=== PATIENT | male | born 1955 | race Caucasian/White ===

== ENCOUNTER 2023-03-07 14:59 | Inpatient (IN) ==
[2023-03-07 16:06] VITALS: BMI 26.6
[2023-03-07] MEDS ORDERED: PERCOCET TAB 5/325 MG PO PRN (16:16)
--- NOTE | 2023-03-07 16:21 | DR.UPDATE ---
H&P UPDATE Review Yes Any changes to H&P?: Yes Changes noted:: Patient now with disabling rest pain of left leg. Will admit and plan on table arteriogram, atherectomy of left SFA stents , possible atherectomy , possible placement of additional tents left SFA.
[2023-03-07] MEDS ORDERED: LR 1,000 ML IV 1,000 ML IV ONE (16:27)
[2023-03-07] MEDS: LR 1,000 ML IV 1,000 ML IV SCH (16:45)
[2023-03-07] MEDS ORDERED: PROVENTIL NEB TX 0.083% 2.5MG/ 3ML NEB PRN (18:36)
[2023-03-07] MEDS: NICOTINE PATCH TD SCH (20:10)
[2023-03-07] MEDS: PROVENTIL NEB TX 0.083% 2.5MG/ 3ML NEB SCH (20:42)
[2023-03-07] MEDS: NEURONTIN TAB 600 MG PO SCH (21:22)
[2023-03-08] MEDS: LR 1,000 ML IV 1,000 ML IV SCH (05:01)
[2023-03-08] MEDS: NEURONTIN TAB 600 MG PO SCH ×3 (05:32→21:08)
--- NOTE | 2023-03-08 06:06 | EKG ---
Test Reason : preop Blood Pressure : */* mmHG Vent. Rate : 58 BPM Atrial Rate : 58 BPM P-R Int : 150 ms QRS Dur : 110 ms QT Int : 426 ms P-R-T Axes : 73 -65 71 degrees QTc Int : 418 ms Sinus bradycardia Left axis deviation Incomplete right bundle branch block Minimal voltage criteria for LVH, may be normal variant ( [place] product ) Septal infarct , age undetermined Biphasic T waves in the anterolateral leads, rule out ischemia Abnormal ECG No previous ECGs available Confirmed by Chas Nassar ([id number]) on 03/08/2023 7:23:19 AM Referred By: Confirmed By: Chas Nassar
--- NOTE | 2023-03-08 07:40 | RAD ---
HISTORYPreop ischemic left lower extremitySTUDYChest AP portableCOMPARISONNoneFINDINGSHeart size is normal. Bre are normal. A triangular area of abnormal density in the medial right lung base could represent a focus of infiltrate or atelectasis within the medial right lower lobe or a very prominent epicardial fat pad. Chest CT would be of further diagnostic value. Remainder of the lung flores are clear. Bony thorax is unremarkable.IMPRESSIONTriangular area of abnormal density in the medial right lung base. Differential diagnosis as above. Chest CT may be of further diagnostic value if clinically indicated.Electronically signed by: DAVE MASTERSON (Mar 08, 2023 07:35:59)
[2023-03-08] MEDS: PROVENTIL NEB TX 0.083% 2.5MG/ 3ML NEB SCH ×2 (08:00→21:15)
[2023-03-08] MEDS ORDERED: NICOTINE PATCH TD SCH (09:00)
[2023-03-08] MEDS: NICOTINE PATCH TD SCH (09:19)
[2023-03-08 12:49] LABS: BASOPHILS % (AUTO) 0.6 % (0.2-1.0); EOSINOPHILS # (AUTO) 0.1 x10^3/uL (0.0-0.2); EOSINOPHILS % (AUTO) 0.8 % (0.9-2.9); HEMATOCRIT 49.7 % (42.0-54.0); HEMOGLOBIN 16.7 g/dL (13.5-18.0); LYMPHOCYTES # (AUTO) 1.3 X10^3/uL (1.3-2.9); LYMPHOCYTES % (AUTO) 16.7 % (21.0-51.0); MEAN CORPUSCULAR HEMOGLOBIN 32.5 pg (27.0-34.0); MEAN CORPUSCULAR HGB CONC 33.6 g/dL (33.0-35.0); MEAN CORPUSCULAR VOLUME 96.7 fL (80.0-100.0); MEAN PLATELET VOLUME 8.3 fL (7.4-11.0); MONOCYTES # (AUTO) 0.7 x10^3/uL (0.3-0.8); MONOCYTES % (AUTO) 8.9 % (0.0-13.0); NEUTROPHILS # (AUTO) 5.9 x10^3/uL (2.2-4.8); PLATELET COUNT 238 X10^3/uL (150.0-450.0); RED BLOOD COUNT 5.13 X10^6/uL (4.7-6.0); RED CELL DISTRIBUTION WIDTH 14.6 % (11.6-16.5)
[2023-03-08] MEDS: CHLORTHALIDONE PO SCH (12:56)
[2023-03-08] MEDS: NORVASC TAB 10 MG PO SCH (12:56)
[2023-03-08] MEDS: WELLBUTRIN XL 150 MG (DAILY) PO SCH (12:56)
[2023-03-08] MEDS: TOPROL XL PO SCH (12:56)
[2023-03-08] MEDS: COZAAR PO SCH (12:56)
[2023-03-08] MEDS: MOBIC TAB 15 MG PO SCH (12:56)
[2023-03-08 13:00] LABS: ALANINE AMINOTRANSFERASE 16 Units/L (12-78); ALBUMIN 3.7 g/dL (3.4-5.0); ALKALINE PHOSPHATASE 86 Units/L (46-116); ASPARTATE AMINO TRANSFERASE 14 Units/L (15-37); BLOOD UREA NITROGEN 5 mg/dL (7-18); CALCIUM 8.5 mg/dL (8.5-10.1); CARBON DIOXIDE 37.1 mmol/L (21-32); CHLORIDE 100 mmol/L (98-107); CREATININE 0.82 mg/dL (0.70-1.30); GLUCOSE 98 mg/dL (65-99); POTASSIUM 3.7 mmol/L (3.5-5.1); SODIUM 139 mmol/L (136-145); TOTAL PROTEIN 6.9 g/dL (6.4-8.2); eGFR NON BLACK RACES > 60 (>60)
[2023-03-08] MEDS ORDERED: LR 1,000 ML IV 1,000 ML IV ONE (15:33)
[2023-03-08] MEDS ORDERED: NS 100 ML IV 100 ML ONE (15:33)
[2023-03-08] MEDS ORDERED: ANCEF VIAL 1 GRAM ONE (15:33)
[2023-03-08] MEDS ORDERED: DUONEB 0.5 MG/3 MG (3 mL) NEB ONE (15:38)
[2023-03-08] MEDS ORDERED: KETAMINE 50 MG/5 ML-NACL SYRNG ONE (15:41)
[2023-03-08] MEDS ORDERED: FENTANYL VIAL INJ 100 mcg ONE (15:41)
[2023-03-08] MEDS ORDERED: VERSED ONE (15:41)
[2023-03-08] MEDS ORDERED: DIPRIVAN VIAL 20 ML ONE (15:42)
[2023-03-08] MEDS ORDERED: HEPARIN SODIUM INJ 5000 UNITS ONE (15:42)
[2023-03-08] MEDS ORDERED: MARCAINE 0.25% INJ ONE (15:56)
[2023-03-08] MEDS ORDERED: HEPARIN SODIUM IN D5W 75,000 UNITS/1,500 ML BAG ONE (15:57)
[2023-03-08] MEDS ORDERED: VISIPAQUE 100 ML ONE (16:08)
[2023-03-08] MEDS: ASPIRIN EC 81 MG PO SCH (16:16)
[2023-03-08] MEDS ORDERED: PROTAMINE SULFATE 50 MG VIAL ONE (17:01)
--- NOTE | 2023-03-08 17:13 | OR.IMMED ---
IMMEDIATE POST-OP NOTE Immediate Post-Op Note Date of surgery/procedure: 03/08/23 Pre-Op Diagnosis: Critical ischemia left leg with occluded superficial femoral artery stents left leg Post-Op Diagnosis: same with occluded stints of the left superficial femoral artery with significant stenosis both above and below the stents involving the proximal superficial femoral artery in the proximal popliteal artery and distal superficial femoral artery Procedure: diagnostic aortogram , diagnostic arteriogram left leg, atherectomy and balloon angioplasty of the previously placed left superficial artery stents, atherectomy and drug-coated stent placement of the proximal left superficial femoral artery Description of Procedure: see operative summary Surgeon/Wood Getter: Ji Findings: completely included stents of the left superficial femoral artery ,disease both proximal and distal to the stents, three vessel run off of the left foot Estimated Blood Loss: 100 cc Complications: none Progress Notes: return to floor. Begin regular diet. Continue aspirin and begin Xarelto 2.5 mg BID. Probably discharge tomorrow
[2023-03-08] MEDS: XARELTO PO SCH (21:08)
[2023-03-09 04:12] VITALS: RESP 18
[2023-03-09] MEDS: NEURONTIN TAB 600 MG PO SCH (05:02)
[2023-03-09 08:15] VITALS: BP 123/73; PULSE 53; TEMP 97.8; O2SAT 93
[2023-03-09] MEDS: COZAAR PO SCH (08:37)
[2023-03-09] MEDS: ASPIRIN EC 81 MG PO SCH (08:38)
[2023-03-09] MEDS: TOPROL XL PO SCH (08:38)
[2023-03-09] MEDS: NORVASC TAB 10 MG PO SCH (08:38)
[2023-03-09] MEDS: WELLBUTRIN XL 150 MG (DAILY) PO SCH (08:38)
[2023-03-09] MEDS: MOBIC TAB 15 MG PO SCH (08:38)
[2023-03-09] MEDS: XARELTO PO SCH (08:38)
[2023-03-09] MEDS: CHLORTHALIDONE PO SCH (08:38)
[2023-03-09] MEDS: LR 1,000 ML IV 1,000 ML IV SCH (08:39)
[2023-03-09] MEDS: NICOTINE PATCH TD SCH (08:39)
[2023-03-09] MEDS: PROVENTIL NEB TX 0.083% 2.5MG/ 3ML NEB SCH (08:57)
--- NOTE | 2023-03-09 09:54 | W.DIS.FURT ---
Summary of Discharge Discharge Summary of Date Date of Exam: 03/09/23 Admission Date Date of Admission: 03/07/23 Admission Diagnosis Hospital Course: 67 year old male who presented last week to my office with rest pain of the left leg and CT angiogram showing completely occluded left superficial femoral artery stents. He was to be schedule electively but his pain became worse and I admitted him into the hospital on March 07. He was taken to the operating Suite on March 08 we underwent atherectomy and Drug-coated balloon angioplasty of the previous placed stents as well as additional stents placed proximaly due to significant disease of the proximal superficial femoral artery. He is doing well. His pain is resolved and his left foot is warm with good doppler at the ankle. He will be discharged on his usual medications. He will continue as daily aspirin and his Plavix . He also will be given Percocet 5 mg tablets, one every six hours PRN pain, # 20. He will see me in one week in follow up. Vital Signs: Vital Signs (72 hours) 03/07/23 16:00 03/07/23 15:26 03/07/23 18:03 Temperature 97.8 F Pulse Rate Pulse Rate [Left Radial] 58 L Respiratory Rate 22 Blood Pressure Blood Pressure [Left Arm] 183/96 Blood Pressure [Right Arm] O2 Sat by Pulse Oximetry 94 L Oxygen Delivery Method Room Air Room Air Nasal Cannula Oxygen Flow Rate 2 FIO2% 28 03/07/23 19:00 03/07/23 20:00 03/07/23 20:42 Temperature 97.5 F L Pulse Rate Pulse Rate [Left Radial] 64 Respiratory Rate 18 Blood Pressure Blood Pressure [Left Arm] 160/74 Blood Pressure [Right Arm] O2 Sat by Pulse Oximetry 95 Oxygen Delivery Method Room Air Room Air Nasal Cannula Oxygen Flow Rate 2 FIO2% 28 03/07/23 20:42 03/07/23 23:43 03/08/23 00:16 Temperature 97.9 F Pulse Rate 60 Pulse Rate [Left Radial] 66 Respiratory Rate 20 Blood Pressure Blood Pressure [Left Arm] 165/96 Blood Pressure [Right Arm] 170/80 O2 Sat by Pulse Oximetry 94 L 93 L Oxygen Delivery Method Room Air Oxygen Flow Rate FIO2% 03/08/23 04:00 03/08/23 08:00 03/08/23 08:00 Temperature 98.4 F 98.1 F Pulse Rate Pulse Rate [Left Radial] 63 62 Respiratory Rate 20 20 Blood Pressure Blood Pressure [Left Arm] Blood Pressure [Right Arm] 147/80 164/98 O2 Sat by Pulse Oximetry 91 L 91 L Oxygen Delivery Method Room Air Room Air Nasal Cannula Oxygen Flow Rate 2 FIO2% 28 03/08/23 08:00 03/08/23 07:00 03/08/23 12:00 Temperature 97.8 F Pulse Rate 62 Pulse Rate [Left Radial] 62 Respiratory Rate 20 Blood Pressure Blood Pressure [Left Arm] Blood Pressure [Right Arm] 150/88 O2 Sat by Pulse Oximetry 94 L 91 L Oxygen Delivery Method Room Air Room Air Oxygen Flow Rate FIO2% 03/08/23 15:35 03/08/23 17:30 03/08/23 17:45 Temperature 97.8 F 97.1 F L 98.2 F Pulse Rate 55 L Pulse Rate [Left Radial] 56 L 52 L Respiratory Rate 18 18 20 Blood Pressure 174/98 Blood Pressure [Left Arm] Blood Pressure [Right Arm] 140/80 130/71 O2 Sat by Pulse Oximetry 91 L 92 L 95 Oxygen Delivery Method Nasal Cannula Oxygen Flow Rate FIO2% 03/08/23 18:00 03/08/23 18:15 03/08/23 18:30 Temperature 97.7 F Pulse Rate Pulse Rate [Left Radial] 50 L 54 L 51 L Respiratory Rate 20 18 18 Blood Pressure Blood Pressure [Left Arm] Blood Pressure [Right Arm] 135/78 137/82 143/85 O2 Sat by Pulse Oximetry 96 95 96 Oxygen Delivery Method Oxygen Flow Rate FIO2% 03/08/23 19:30 03/08/23 20:30 03/08/23 19:00 Temperature 97.7 F 97.5 F L Pulse Rate Pulse Rate [Left Radial] 54 L 53 L Respiratory Rate 18 18 Blood Pressure Blood Pressure [Left Arm] Blood Pressure [Right Arm] 137/82 158/75 O2 Sat by Pulse Oximetry 94 L 94 L Oxygen Delivery Method Nasal Cannula Nasal Cannula Room Air Oxygen Flow Rate FIO2% 03/08/23 21:28 03/08/23 22:17 03/09/23 00:00 Temperature 97.7 F 97.9 F 97.7 F Pulse Rate Pulse Rate [Left Radial] 52 L 55 L 54 L Respiratory Rate 18 18 18 Blood Pressure Blood Pressure [Left Arm] Blood Pressure [Right Arm] 130/67 141/66 137/75 O2 Sat by Pulse Oximetry 93 L 95 94 L Oxygen Delivery Method Nasal Cannula Nasal Cannula Nasal Cannula Oxygen Flow Rate FIO2% 03/09/23 04:12 03/09/23 04:00 03/09/23 05:12 Temperature 98.2 F Pulse Rate Pulse Rate [Left Radial] 59 L Respiratory Rate 18 21 18 Blood Pressure Blood Pressure [Left Arm] Blood Pressure [Right Arm] 152/83 O2 Sat by Pulse Oximetry 91 L Oxygen Delivery Method Nasal Cannula Oxygen Flow Rate FIO2% 03/08/23 21:15 03/08/23 21:15 03/09/23 08:00 Temperature 97.8 F Pulse Rate 61 Pulse Rate [Left Radial] 53 L Respiratory Rate 18 Blood Pressure Blood Pressure [Left Arm] Blood Pressure [Right Arm] 123/73 O2 Sat by Pulse Oximetry 95 93 L Oxygen Delivery Method Nasal Cannula Nasal Cannula Oxygen Flow Rate 2 FIO2% 28 03/09/23 07:00 Temperature Pulse Rate Pulse Rate [Left Radial] Respiratory Rate Blood Pressure Blood Pressure [Left Arm] Blood Pressure [Right Arm] O2 Sat by Pulse Oximetry Oxygen Delivery Method Nasal Cannula Oxygen Flow Rate 3 FIO2% Labs: Laboratory Last Values WBC 8.0 X10^3/uL (3.6-10.0) 03/08/23 12:35 RBC 5.13 X10^6/uL (4.7-6.0) 03/08/23 12:35 Hgb 16.7 g/dL (13.5-18.0) 03/08/23 12:35 Hct 49.7 % (42.0-54.0) 03/08/23 12:35 MCV 96.7 fL (80.0-100.0) 03/08/23 12:35 MCH 32.5 pg (27.0-34.0) 03/08/23 12:35 MCHC 33.6 g/dL (33.0-35.0) 03/08/23 12:35 RDW 14.6 % (11.6-16.5) 03/08/23 12:35 Plt Count 238 X10^3/uL (150.0-450.0) 03/08/23 12:35 MPV 8.3 fL (7.4-11.0) 03/08/23 12:35 Neut % (Auto) 73.0 % (42.0-75.0) 03/08/23 12:35 Lymph % (Auto) 16.7 % (21.0-51.0) L 03/08/23 12:35 Towns % (Auto) 8.9 % (0.0-13.0) 03/08/23 12:35 Eos % (Auto) 0.8 % (0.9-2.9) L 03/08/23 12:35 Baso % (Auto) 0.6 % (0.2-1.0) 03/08/23 12:35 Neut # (Auto) 5.9 x10^3/uL (2.2-4.8) H 03/08/23 12:35 Lymph # (Auto) 1.3 X10^3/uL (1.3-2.9) 03/08/23 12:35 Towns # (Auto) 0.7 x10^3/uL (0.3-0.8) 03/08/23 12:35 Eos # (Auto) 0.1 x10^3/uL (0.0-0.2) 03/08/23 12:35 Baso # (Auto) 0.0 X10^3/uL (0.0-0.1) 03/08/23 12:35 Absolute Nucleated RBC 0.0 /100WBC 03/08/23 12:35 Sodium 139 mmol/L (136-145) 03/08/23 12:35 Corrected Sodium TNP 03/08/23 12:35 Potassium 3.7 mmol/L (3.5-5.1) 03/08/23 12:35 Chloride 100 mmol/L (98-107) 03/08/23 12:35 Carbon Dioxide 37.1 mmol/L (21-32) H 03/08/23 12:35 BUN 5 mg/dL (7-18) L 03/08/23 12:35 Creatinine 0.82 mg/dL (0.70-1.30) 03/08/23 12:35 Est GFR (MDRD) Af Amer > 60 (>60) 03/08/23 12:35 Est GFR (MDRD) Non-Af > 60 (>60) 03/08/23 12:35 Glucose 98 mg/dL (65-99) 03/08/23 12:35 Calcium 8.5 mg/dL (8.5-10.1) 03/08/23 12:35 Corrected Calcium TNP 03/08/23 12:35 Total Bilirubin 0.60 mg/dL (0.2-1.0) 03/08/23 12:35 AST 14 Units/L (15-37) L 03/08/23 12:35 ALT 16 Units/L (12-78) 03/08/23 12:35 Alkaline Phosphatase 86 Units/L (46-116) 03/08/23 12:35 Total Protein 6.9 g/dL (6.4-8.2) 03/08/23 12:35 Albumin 3.7 g/dL (3.4-5.0) 03/08/23 12:35 Globulin 3.2 g/dL (2.5-4.5) 03/08/23 12:35 Albumin/Globulin Ratio 1.2 Ratio (1.1-2.1) 03/08/23 12:35 Reason For Visit: LEFT ISHEMIC LOWER EXTREMETY Discharge Date Discharge Date: 03/09/23 Discharge Diagnosis All Active Problems (Updated 03/09/23 @ 09:51 by Jerrod Workman) Atherosclerosis of [place] arteries of extremities with rest pain, left leg (Acute) Plan of Treatment: Continue with present treatment and follow up plan. Pt is to keep follow up appointment as instructed and take medications as ordered. Discharge Medications Discharge Medications: bee venom protein (honey bee) Allergy (Verified 03/07/23 18:15) CONTINUE taking the following medications albuterol sulfate 90 mcg/actuation aerosol inhaler (ProAir HFA) 1 puff inhal ation Q4H PRN 03/08/23 [History] amlodipine 10 mg tablet 10 mg PO QDAY 03/08/23 [History] aspirin 81 mg tablet,delayed release 81 mg PO QDAY 03/08/23 [History] atorvastatin 10 mg tablet 10 mg PO QDAY 03/08/23 [History] budesonide 160 mcg-glycopyr 9 mcg-formot 4.8 mcg/actuation HFA inhaler (Breztri Aerosphere) 2 inh inhalation BID 03/08/23 [History] chlorthalidone 25 mg tablet 25 mg PO QAM 03/08/23 [History] clopidogrel 75 mg tablet 75 mg PO QDAY 03/08/23 [History] cyclobenzaprine 10 mg tablet 10 mg PO TID PRN Pain 03/08/23 [History] losartan 100 mg tablet 100 mg PO QDAY 03/08/23 [History] meloxicam 15 mg tablet 15 mg PO QDAY 03/08/23 [History] metoprolol succinate 50 mg tablet,extended release 24 hr 50 mg PO QDAY 03/08/23 [History] New Prescriptions oxycodone-acetaminophen 5 mg-325 mg tablet (Percocet) 1 tab PO Q6H PRN #20 tabs 03/09/23 [Rx] Discharge Disposition Assessment: e hospital course Discharge Plan Discharge Plan Hospital Course: 67 year old male who presented last week to my office with rest pain of the left leg and CT angiogram showing completely occluded left superficial femoral artery stents. He was to be schedule electively but his pain became worse and I admitted him into the hospital on March 07. He was taken to the operating Suite on March 08 we underwent atherectomy and Drug-coated balloon angioplasty of the previous placed stents as well as additional stents placed proximaly due to significant disease of the proximal superficial femoral artery. He is doing well. His pain is resolved and his left foot is warm with good doppler at the ankle. He will be discharged on his usual medications. He will continue as daily aspirin and his Plavix . He also will be given Percocet 5 mg tablets, one every six hours PRN pain, # 20. He will see me in one week in follow up. Patient Disposition: 01 HOME, SELF-CARE Condition: Stable Health Concerns: Post Hospitalization: new medications and changes needed to prevent readmission or further decline. Pt educated and given instructions on all concerns. Plan of Treatment: Continue with present treatment and follow up plan. Pt is to keep follow up appointment as instructed and take medications as ordered. Assessment: e hospital course Prescription drug monitoring program results: PDMP reviewed and no concerns identified Prescriptions: New oxycodone-acetaminophen [Percocet] 5-325 mg tablet 1 tab PO Q6H MDD 4 PRNQty: 20 0RF Continued metoprolol succinate 50 mg Tablet Extended Release 24 Hr 50 mg PO QDAY amlodipine 10 mg Tablet 10 mg PO QDAY aspirin 81 mg Tablet,Delayed Release (Dr/Ec) 81 mg PO QDAY atorvastatin 10 mg Tablet 10 mg PO QDAY meloxicam 15 mg Tablet 15 mg PO QDAY clopidogrel 75 mg Tablet 75 mg PO QDAY chlorthalidone 25 mg Tablet 25 mg PO QAM Rx Instructions: Take one tablet by mouth every day in the morning with food albuterol sulfate [ProAir HFA] 90 mcg/actuation Hfa Aerosol Inhaler 1 puff INHALATION Q4H PRN losartan 100 mg Tablet 100 mg PO QDAY Breztri Aerosphere 160-9-4.8 mcg/actuation Hfa Aerosol Inhaler 2 inh INHALATION BID cyclobenzaprine 10 mg Tablet 10 mg PO TID PRN (Reason: Pain) Follow ups/Referrals Follow ups/Referrals: Jerrod Workman [Primary Care Provider] - 1 WEEK Instructions Instructions: Steps to Quit Smoking, [id number] Stand Alone Forms: Excuse From Work or School, Post Hospital Follow Up Care
--- NOTE | 2023-03-10 19:25 | DR.OPNOTE ---
OP NOTE Pre-Op Diagnosis: Critical ischemia left leg with occluded left SFA stents Post-Op Diagnosis: Same plus severe disease proximal left SFA Procedure Date Date Of Procedure: 03/08/23 Procedure: PROCEDURE: DIAGNOSTIC AORTOGRAM, DIAGNOSTIC ARTERIOGRAM RIGHT LEG NARRATIVE : The patient was taken to the operative suite and place in the supine position. The right groin and entire left leg were prepped and draped in sterile fashion. The patient was given intravenous sedation supervised by myself. Time out for the procedure obtained. Ultrasound used to identify the right femoral artery and the skin overlying it infiltrated with 0.5% Marcaine. Ultrasound then used to guide puncture of the right femoral artery and a 0.012 inch guide wire was placed. Incision made over the guide wire at the skin edge with a # 11 knife blade and a micro sheath placed over the guide wire into the right femoral artery The small guidewire exchanged for a 0.035 inch Advantage glide wire and the micro sheath exchanged for a 5 Fr vascular sheath. Patient given 5000 units of intravenous heparin. Omni catheter was placed over the guide wire into the aorta and diagnostic aortogram carried out with the power injector showing normal aorta and normal iliac arteries bilaterally . Omni catheter was used to steer the guide wire down the left common iliac artery to the distal left external iliac artery . Omni catheter was exchanged for a [place] catheter and sequential arteriograms carried out of the left lower extremity showing completely occluded distal left superficial femoral artery stents, severe disease of the left superficial femoral artery proximal to the stents and 3 vessel runoff to the ankle of the left leg .The 5 Fr sheath in the right groin then exchanged for a 7 Fr destination sheath which was parked in distal left external iliac artery. [place] catheter and 0.035 inch wire used to cross the severe stenosis of the proximal left superficial femoral artery and the occluded stents to the popliteal artery. Guidewire and [place] catheter placed all the way into the peroneal artery. This was selective catheterization. 0.035 inch wire exchange for a 0.014 in wire through the [place] catheter and parked in the left peroneal artery. Over the 0.014 wire we placed the [place] device and performed atherectomy of the entire left superficial femoral artery. Two runs were done with the blades down. One run done with the blades up. The Jet Stream device removed and over the wire we placed a 6 mm by 200 mm [employer] [place] drug-coated balloon and inflated it through the areas of the previously played stents inflating it for 3 minutes. Post procedure arteriogram showed excellent results inside the stents but the severe disease proximal to this still existed. [id number] we placed a 6 mm by 150 mm [employer] L[place] drug-coated stent and proximal to this we placed an additional 6 mm by 60 mm [place] stent with small overlap of the previous placed stent . The stents were then balloon dilated with a 5 mm x 200 mm [employer] [place] balloon. Post procedure arteriogram showed excellent results with good flow all the way to the left foot . All wires and devices removed. The 7 Fr sheath was pulled back into the aorta and a 0.035 inch wire placed. The destination sheath exchanged for an Angioseal device used to close the puncture of the right femoral artery. Dressing applied to the right groin. Patient given 30 mg IV Protamine at the end of the case .Patient taken to the surgical floor in good condition. Type of Anesthesia: Local (0.5% marcaine ) Anesthesia Comment: plus MAC Findings: completely occluded left distal superficial femoral artery stents, severe disease of the superficial femoral artery proximal to the stents ,3 vessel run off to the left foot Type of Fluids Used:: Lactated Ringers Total Amount of Fluid Infused:: 200 cc Urine output: 100 cc EBL: 100 cc Complications:: none Needle/Sponge Count:: correct Disposition/Condition: Pt. tolerated procedure without difficulty. Taken back to the floor in stable condition.
== END 2023-03-09 10:45 | disposition home or self-care (01) | DRG 272 ==
LOC: MED/SURG 15:03
PROVIDERS: ADMIT Surgery; ATTEND Surgery
DX: E78.5 Hyperlipidemia, unspecified; Z59.86 Financial insecurity; J44.9 Chronic obstructive pulmonary disease, unspecified; I70.222 Atherosclerosis of native arteries of extremities with rest pain, left leg; Z72.0 Tobacco use; I10 Essential (primary) hypertension